=== PATIENT | male | born 1995 | race Caucasian/White ===

== ENCOUNTER → 2025-03-13 | Outpatient (REF) | payer BC | LOC: M SMT 13:25 | PROVIDERS: ATTEND Urology | DX: Z30.2 Encounter for sterilization (principal) ==

== ENCOUNTER → 2025-06-02 | Outpatient (REF) | payer BC | LOC: M SMT 13:58 | PROVIDERS: ATTEND Urology | DX: Z30.8 Encounter for other contraceptive management (principal) ==